=== PATIENT | female | born 1995 | race Caucasian/White ===

== ENCOUNTER 2019-06-01 07:53 | Emergency (ER) | payer BC ==
[~2019-06-01] VITALS: Ht 160 cm; Wt 49.9 kg
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
[2019-06-01 08:32] VITALS: BP 118/71
== END 2019-06-01 08:30 | disposition home or self-care (01) ==
LOC: ER 07:53
DX: J70.5 Respiratory conditions due to smoke inhalation (principal); F41.9 Anxiety disorder, unspecified; Z88.2 Allergy status to sulfonamides; Z88.1 Allergy status to other antibiotic agents
CPT/HCPCS: 99281